=== PATIENT | female | born 1945 | race Caucasian/White ===

== ENCOUNTER 2022-12-27 10:10 | Inpatient (IN) | payer MEDICARE, MEDICAID ==
[~2022-12-27] VITALS: Ht 152.4 cm; Wt 48.1 kg
[2022-12-27] MEDS ORDERED: ESCI10TA PO (10:35)
[2022-12-27] MEDS ORDERED: ALEN70TA80 PO (10:35)
[2022-12-27] MEDS ORDERED: TRAZ-182 PO (10:35)
[2022-12-27] MEDS ORDERED: LATA2.5D15 (10:35)
[2022-12-27] MEDS ORDERED: ATOR10TA PO (10:35)
[2022-12-27 11:07] LABS: HEMATOCRIT 39.9 % (31.2-41.9); MEAN CORPUSCULAR HEMOGLOBIN 30.5 uug (24.7-32.8); MEAN CORPUSCULAR VOLUME 92.8 fL (75.5-95.3); PLATELET COUNT (AUTO) 168 K/uL (179-408)
--- NOTE | 2022-12-27 11:17 | NUR ---
77 years old female presents to er for placement, awake no pain poor safety awareness will continue to monitor closely.
[2022-12-27 11:33] LABS: ALANINE AMINOTRANSFERASE 31 U/L (14-59); ALKALINE PHOSPHATASE 66 U/L (50-136); ASPARTATE AMINOTRANSFERASE 26 U/L (15-37); BILIRUBIN,DIRECT 0.2 mg/dL (0.0-0.2); BILIRUBIN,TOTAL 1.3 mg/dL (0.2-1.0); CARBON DIOXIDE 26 mmol/L (21-32); CHLORIDE 107 mmol/L (98-107); CREATININE 0.8 mg/dL (0.6-1.3); GLUCOSE 113 mg/dL (74-106); POTASSIUM 3.7 mmol/L (3.5-5.1); TOTAL PROTEIN, SERUM 7.6 g/dL (6.4-8.2); UREA NITROGEN, BLOOD 29 mg/dL (7-18)
[2022-12-27] MEDS ORDERED: LORAZEPAM 2 MG/1 ML VIAL ONE (12:12)
[2022-12-27] MEDS ORDERED: LORAZEPAM 2 MG/1 ML VIAL IV ONE (12:15)
[2022-12-27] MEDS ORDERED: IV NS 1000 ML 1,000 ML IV ONE (12:15)
[2022-12-27] MEDS ORDERED: SWABABLE VALVE TRANSFER SET EA MC ONE (13:23)
[2022-12-27] MEDS ORDERED: IV NORMAL SALINE 250 ML IV ONE (13:23)
[2022-12-27] MEDS ORDERED: IOHEXOL 350 100 ML INFUS..BTL ONE (13:23)
[2022-12-27 14:42] LABS: *BILIRUBIN,URIN NEGATIVE (NEGATIVE); *BLOOD, URINE NEGATIVE (NEGATIVE); *CLARITY,URINE CLEAR (CLEAR); *COLOR,URINE YELLOW (YELLOW); *KETONES,URINE 1+ (NEGATIVE); *UROBILINOGEN,URINE 0.2 E.U./dl (NORMAL); LEUKOCYTE ESTERASE ,URINE NEGATIVE (NEGATIVE); NITRITE, URINE NEGATIVE (NEGATIVE); PH,URINE 8.5 (5.0-8.0); UGLUCOSE NEGATIVE (NEGATIVE)
--- NOTE | 2022-12-27 14:42 | NUR ---
patient quiet cooperative no changes vss, safety maintained.
[2022-12-27 14:55] LABS: *AMPHETAMINE, URINE NEGATIVE (NEGATIVE); *CANNABINOID, URINE NEGATIVE (NEGATIVE); *COCCAINE, URINE NEGATIVE (NEGATIVE); *PHENCYCLIDINE SCREEN,URINE NEGATIVE (NEGATIVE)
--- NOTE | 2022-12-27 17:15 | NUR ---
patient admit to [facility] for gen weakness, frequent fall, report given to nurse William all questions answered.
--- NOTE | 2022-12-27 17:50 | NUR ---
Pt admitted to floor from ER in stable condition, NAD, confused, primary Mongolian speaking, pt place in bed, pm care given, family member asked to be at bedside for admission, dinner ordered, family assisting pt with meal, pt tolerating well. pt place close to nurses station for safety, iv heplock intact and secured for pt safety. plan for long-term placement, family unable to care for pt.
[2022-12-27 20:00] VITALS: BP 117/51
[2022-12-27] MEDS ORDERED: LATANOPROST OPHT DROP 2.5 ML BOTTLE EACHEYE SCH (20:00)
[2022-12-27] MEDS ORDERED: MAGNESIUM HYDROXIDE 30 ML LIQUID UDC PO PRN (20:00)
[2022-12-27] MEDS ORDERED: ONDANSETRON 4 MG/2 ML VIAL IV PRN (20:00)
[2022-12-27] MEDS ORDERED: MELATONIN 3 MG TABLET PO PRN (20:00)
[2022-12-27] MEDS ORDERED: ACETAMINOPHEN 325 MG TABLET PO PRN (20:00)
[2022-12-27] MEDS: IV NS 1000 ML 1,000 ML IV SCH (20:15)
[2022-12-27] MEDS: CIPROFLOXACIN 0.3% OPHT DROP 2.5 ML BOTTLE RIGHTEYE SCH (21:00)
[2022-12-27] MEDS: ATORVASTATIN 10 MG TABLET PO SCH (21:00)
[2022-12-27] MEDS: ATENOLOL 25 MG TABLET PO SCH (22:41)
[2022-12-28 04:00] VITALS: BP 120/71
[2022-12-28 06:54] LABS: HEMATOCRIT 36.4 % (31.2-41.9); MEAN CORPUSCULAR HEMOGLOBIN 31.3 uug (24.7-32.8); PLATELET COUNT (AUTO) 148 K/uL (179-408)
[2022-12-28 07:28] LABS: CARBON DIOXIDE 25 mmol/L (21-32); CHLORIDE 108 mmol/L (98-107); CREATININE 0.7 mg/dL (0.6-1.3); GLUCOSE 78 mg/dL (74-106); MAGNESIUM 2.2 mg/dL (1.8-2.4); PHOSPHOROUS 3.7 mg/dL (2.5-4.9); POTASSIUM 3.8 mmol/L (3.5-5.1); UREA NITROGEN, BLOOD 18 mg/dL (7-18)
[2022-12-28 07:31] LABS: IRON, SERUM 57 ug/dL (50-175)
--- NOTE | 2022-12-28 08:22 | NUR ---
1939 report received from ongoing nurse. Patient was seen in bed, [id number] with confusion , nonverbal. She did took her schedule meds. She was trying to pull her IV line but I did secured the line from getting pulled. No adverse events noted. She has been has been sleeping on and off. But she is easy to get redirect. She is now resting in her room. Will continue to monitor patient for safety.
[2022-12-28] MEDS: ESCITALOPRAM OXALATE 10 MG TABLET PO SCH (08:46)
[2022-12-28] MEDS: CIPROFLOXACIN 0.3% OPHT DROP 2.5 ML BOTTLE RIGHTEYE SCH ×4 (08:50→20:40)
[2022-12-28] MEDS: ATENOLOL 25 MG TABLET PO SCH ×2 (08:50→20:52)
[2022-12-28 10:21] LABS: THYROID STIMULATING HORMONE 3.463 mIU/mL (0.358-3.740)
[2022-12-28 11:12] VITALS: BP 132/55
[2022-12-28 16:24] VITALS: BP 132/57
--- NOTE | 2022-12-28 17:03 | NUR ---
Pt. has been stable through out the shift. Alert and oriented x2 with forgetfulness. Compliance with the care given. No c/o pain. Call light within reach. Bed in low position. All need attended and met. Will keep monitoring the patient.
[2022-12-28 20:33] VITALS: BP 118/47
[2022-12-28] MEDS: LATANOPROST OPHT DROP 2.5 ML BOTTLE EACHEYE SCH (20:40)
[2022-12-28] MEDS: ATORVASTATIN 10 MG TABLET PO SCH (20:41)
[2022-12-28] MEDS: IV NS 1000 ML 1,000 ML IV SCH (20:54)
[2022-12-29 04:25] VITALS: BP 113/45
--- NOTE | 2022-12-29 08:00 | NUR ---
resting in bed, confused, speaks Indonesian and rarely answers questions, needs attended, fall precautions observed
[2022-12-29] MEDS: ESCITALOPRAM OXALATE 10 MG TABLET PO SCH (08:56)
[2022-12-29] MEDS: CIPROFLOXACIN 0.3% OPHT DROP 2.5 ML BOTTLE RIGHTEYE SCH ×4 (08:56→21:06)
[2022-12-29] MEDS: ATENOLOL 25 MG TABLET PO SCH ×2 (09:06→21:00)
[2022-12-29 11:56] VITALS: BP 119/51
[2022-12-29] MEDS: ENSURE ENLIVE (VAN) 240 ML LIQUID PO SCH ×2 (13:00→17:00)
[2022-12-29] MEDS ORDERED: ATEN25TA PO (14:14)
[2022-12-29] MEDS ORDERED: Lactose-Free Food PO (14:14)
[2022-12-29] MEDS ORDERED: MAGN400O6 PO (14:14)
[2022-12-29] MEDS ORDERED: MELA3TAB41 PO (14:14)
[2022-12-29] MEDS ORDERED: ONDA4VIA23 PO (14:14)
[2022-12-29] MEDS ORDERED: ACET325T53 PO (14:14)
[2022-12-29] MEDS ORDERED: LATA2.5D2 EACHEYE (14:14)
[2022-12-29] MEDS ORDERED: CIPR2.5D11 RIGHTEYE (14:14)
[2022-12-29 16:35] VITALS: BP 144/62
--- NOTE | 2022-12-29 17:48 | NUR ---
agitated, pulled out IV, changed and made comfortable
[2022-12-29 20:15] VITALS: BP 124/48
[2022-12-29] MEDS: ATORVASTATIN 10 MG TABLET PO SCH (20:49)
[2022-12-29] MEDS: LATANOPROST OPHT DROP 2.5 ML BOTTLE EACHEYE SCH (21:06)
[2022-12-30 04:32] VITALS: BP 123/41
[2022-12-30 06:47] LABS: HEMATOCRIT 39.5 % (31.2-41.9); MEAN CORPUSCULAR VOLUME 92.5 fL (75.5-95.3); PLATELET COUNT (AUTO) 164 K/uL (179-408)
--- NOTE | 2022-12-30 06:57 | NUR ---
Slept well throughout the night, no distress noted. Needs assessed and attended to.
[2022-12-30 06:58] LABS: CREATININE 0.7 mg/dL (0.6-1.3); PHOSPHOROUS 3.6 mg/dL (2.5-4.9); POTASSIUM 3.9 mmol/L (3.5-5.1)
[2022-12-30] MEDS: ENSURE ENLIVE (VAN) 240 ML LIQUID PO SCH (09:00)
[2022-12-30] MEDS: CIPROFLOXACIN 0.3% OPHT DROP 2.5 ML BOTTLE RIGHTEYE SCH (10:01)
[2022-12-30] MEDS: ESCITALOPRAM OXALATE 10 MG TABLET PO SCH (10:01)
[2022-12-30] MEDS: ATENOLOL 25 MG TABLET PO SCH (10:05)
[2022-12-30 11:55] VITALS: BP 102/44
--- NOTE | 2022-12-30 12:47 | NUR ---
WOUND CARE CONSULT: RECEIVED CONSULT FOR WOUNDS ON HANDS, HOWEVER NO WOUNDS NOTED TO HANDS. PT IS EATING LUNCH AT THIS TIME. DISCUSSED SKIN PROTECTION WITH NURSING STAFF. MD IN AGREEMENT WITH PLAN OF CARE. CURRENT VERONICA SCORE IS 16.
[2022-12-30] MEDS ORDERED: REMEDY ESSENTIAL ZINC PASTE 113 GM TOP PRN (13:00)
--- NOTE | 2022-12-30 14:21 | NUR ---
REPORT CALLED TO LETICIA MIKE AT [facility]..REPORT ALSO GIVEN EMS TECHS..PT IN STABLE CONDITION PRIOR TO DISCHARGE
[2023-01-03] MEDS ORDERED: ALENDRONATE SODIUM 70 MG TABLET PO SCH (06:00)
== END 2022-12-30 14:20 | DRG 77 ==
LOC: ER 10:10 → MEDSURG3 17:15
PROVIDERS: ADMIT Internal Medicine; ATTEND Internal Medicine
DX: I67.4 Hypertensive encephalopathy (principal); G93.41 Metabolic encephalopathy; F02.83 Dementia in other diseases classified elsewhere, unspecified severity, with mood disturbance; G45.9 Transient cerebral ischemic attack, unspecified; F02.84 Dementia in other diseases classified elsewhere, unspecified severity, with anxiety; I16.0 Hypertensive urgency; E86.0 Dehydration; R27.0 Ataxia, unspecified; Z79.82 Long term (current) use of aspirin; Z79.83 Long term (current) use of bisphosphonates; Z79.899 Other long term (current) drug therapy; Z20.822 Contact with and (suspected) exposure to COVID-19; H10.9 Unspecified conjunctivitis; F32.A Depression, unspecified; F41.9 Anxiety disorder, unspecified; H40.9 Unspecified glaucoma; G30.9 Alzheimer's disease, unspecified; I10 Essential (primary) hypertension; B69.0 Cysticercosis of central nervous system; R29.6 Repeated falls
CPT/HCPCS: 36415; 70496; 71045; 83550; 83735; 84100; 84443; 84484; 85025; 86850; 86900; 86901; 93005; A4663; C1758; G0378; J2060; J7040; Q9967